=== PATIENT | female | born 1950 | race Caucasian/White ===

== ENCOUNTER 2017-11-15 07:34 | Emergency (ER) | payer OTHER ==
[2017-11-15] MEDS: ONDANSETRON 4 MG INJ IV (07:55)
[2017-11-15] MEDS: morphine 4 MG/ML VIAL IV (07:55)
[2017-11-15 08:13] LABS: AADO2 Arterial 509.3 mmHg (7.0-24.0); Allen Test ACCEPTAB; Arterial Base Excess -9.1 mmol/L (-3.0-3); Arterial Blood Gas Oxygen Sat 98.6 mmHG (95.0-98.0); Arterial COHb 0.5 % (0.0-3.0); Arterial Fraction of Oxyhgb 97.8 % (93.0-99.0); Arterial HCO3 18.3 mmol/L (22.0-26.0); Arterial MetHb 0.3 % (0.0-1.5); Arterial Total Hemglobin 12.1 g/dl (12.0-18.0); Arterial pCO2 45.6 mmhg (35-45); Blood Gas IEPAP 15/5; Blood Gas PS 10; MODE MASK - BIPAP; Site Right Radial
[2017-11-15 08:14] LABS: ADD MAN DIFF? NO
[2017-11-15 08:21] LABS: BASOPHIL # 0.1 10^3/ul (0.0-0.1); EOSINOPHILS # 0.5 10^3/ul (0.0-0.5); EOSINOPHILS % 3.6 % (0.0-7.0); HEMATOCRIT 35.5 % (37.0-47.0); HEMOGLOBIN 11.6 g/dl (12.0-16.0); LYMPHOCYTES # 2.3 10^3/ul (0.8-2.9); LYMPHOCYTES % 17.3 % (15.0-51.0); MEAN CORPUSCULAR HEMOGLOBIN 29.7 pg (29.0-33.0); MEAN CORPUSCULAR HGB CONC 32.7 g/dl (32.0-37.0); MEAN PLATELET VOLUME 10.8 fl (7.4-10.4); MONOCYTE # 0.6 10^3/ul (0.3-0.9); MONOCYTES % 4.5 % (0.0-11.0); NEUTROPHIL # 9.8 10^3/ul (1.6-7.5); NEUTROPHILS % 72.9 % (39.0-77.0); PLATELET COUNT 243 10^3/UL (140-415); RED CELL DISTRIBUTION WIDTH 15.1 % (11.5-14.5)
[2017-11-15 08:21] LABS: WHITE BLOOD COUNT 13.5 10^3/ul (4.8-10.8)
[2017-11-15 08:39] LABS: ALANINE AMINOTRANSFERASE 60 IU/L (13-69); ALBUMIN 4.5 g/dl (3.3-4.9); ALBUMIN/GLOBULIN RATIO 1.55; ALKALINE PHOSPHATASE 128 IU/L (42-121); ANION GAP 25 (8-16); ASPARTATE AMINO TRANSFERASE 50 IU/L (15-46); BILIRUBIN,INDIRECT 0.3 mg/dl (0-1.1); BILIRUBIN,TOTAL 0.3 mg/dl (0.2-1.3); BLOOD UREA NITROGEN 68 mg/dl (7-20); CALCIUM 9.3 mg/dl (8.4-10.2); CARBON DIOXIDE 22 mmol/L (21-31); CHLORIDE 98 mmol/L (97-110); CREATININE 8.81 mg/dl (0.44-1.00); INR 0.87; LIPASE 185 U/L (23-300); POTASSIUM 5.2 mmol/L (3.5-5.1); PROTIME 11.9 Sec (11.9-14.9); PT RATIO 0.9; SODIUM 140 mmol/L (135-144); TOTAL PROTEIN 7.4 g/dl (6.1-8.1)
[2017-11-15 08:40] LABS: PARTIAL THROMBOPLASTIN TIME 29.2 Sec (25.0-35.0)
[2017-11-15 08:50] LABS: TROPONIN-I 0.103 ng/ml (0.00-0.12)
[2017-11-15 09:03] LABS: GLUCOSE 507 mg/dl (70-220)
[2017-11-15] MEDS: ALBUTEROL 0.083% (NEB) 2.5 MG/3 ML AMP HHN (10:31)
[2017-11-15] MEDS: NITROGLYCERIN 2% 1 GM OINT PKT TD (10:34)
[2017-11-15] MEDS: predniSONE 20 MG TAB PO (12:04)
[2017-11-15] MEDS: ASPIRIN 81 MG TAB PO (12:04)
[2017-11-15] MEDS: FUROSEMIDE 40 MG INJ IV (12:04)
[2017-11-15] MEDS: INSULIN LISPRO 100 UNIT/ML VIAL SC (12:26)
[2017-11-15] MEDS: NITROGLYCERIN (SL) 0.4 MG TAB SL (12:28)
== END 2017-11-15 11:55 | disposition short-term general hospital (02) ==
LOC: E/R 07:34
DX: J81.0 Acute pulmonary edema (principal); J96.01 Acute respiratory failure with hypoxia; R07.9 Chest pain, unspecified; E11.22 Type 2 diabetes mellitus with diabetic chronic kidney disease; N18.9 Chronic kidney disease, unspecified; I12.9 Hypertensive chronic kidney disease with stage 1 through stage 4 chronic kidney disease, or unspecified chronic kidney disease; J45.909 Unspecified asthma, uncomplicated; I25.10 Atherosclerotic heart disease of native coronary artery without angina pectoris; Z79.82 Long term (current) use of aspirin; Z79.4 Long term (current) use of insulin
CPT/HCPCS: 36415; 36600; 71045; 80053; 82803; 82962; 83690; 84484; 85025; 85610; 85730; 93005; 94660; 94664; 96374; 96375; 99291-25

== ENCOUNTER 2018-02-06 23:57 | Inpatient (IN) | payer OTHER ==
[2018-02-07] MEDS: hydrALAzine 20 MG INJ IV (00:51)
[2018-02-07] MEDS: FUROSEMIDE 40 MG INJ IV (00:52)
[2018-02-07 00:53] LABS: ADD MAN DIFF? NO
[2018-02-07 00:57] LABS: ALANINE AMINOTRANSFERASE 92 IU/L (13-69); ALBUMIN 4.7 g/dl (3.3-4.9); ALKALINE PHOSPHATASE 132 IU/L (42-121); ANION GAP 21 (8-16); ASPARTATE AMINO TRANSFERASE 125 IU/L (15-46); BILIRUBIN,INDIRECT 0.3 mg/dl (0-1.1); BILIRUBIN,TOTAL 0.3 mg/dl (0.2-1.3); BLOOD UREA NITROGEN 43 mg/dl (7-20); CALCIUM 9.6 mg/dl (8.4-10.2); CARBON DIOXIDE 28 mmol/L (21-31); CHLORIDE 97 mmol/L (97-110); CREATININE 7.92 mg/dl (0.44-1.00); GLUCOSE 266 mg/dl (70-220); LIPASE 132 U/L (23-300); SODIUM 140 mmol/L (135-144); TOTAL PROTEIN 7.3 g/dl (6.1-8.1)
[2018-02-07 01:01] LABS: INR 0.89; PROTIME 12.1 Sec (11.9-14.9); PT RATIO 0.9
[2018-02-07 01:02] LABS: PARTIAL THROMBOPLASTIN TIME 27.1 Sec (25.0-35.0)
[2018-02-07 01:09] LABS: TROPONIN-I 0.086 ng/ml (0.000-0.120)
[2018-02-07] MEDS: DEXTROSE 50% 50 ML SYRINGE IV (01:14)
[2018-02-07 01:26] LABS: B-TYPE NATRIURETIC PEPTIDE 46800 PG/ML (0-125)
[2018-02-07] MEDS ORDERED: DEXTROSE 50% 50 ML SYRINGE IV ×3 (01:30→05:00)
[2018-02-07] MEDS: ALBUTEROL 0.5% (NEB) 2.5 MG/0.5 ML AMP INH (01:40)
[2018-02-07] MEDS: ALBUTEROL 0.083% (NEB) 2.5 MG/3 ML AMP HHN (01:58)
[2018-02-07] MEDS: INSULIN REGULAR, HUMAN 100 UNIT/1 ML 3ML VIAL IVP (01:59)
[2018-02-07 02:02] LABS: WHITE BLOOD COUNT 12.9 10^3/ul (4.8-10.8)
[2018-02-07 02:02] LABS: BASOPHIL # 0.1 10^3/ul (0.0-0.1); BASOPHILS % 0.8 % (0.0-2.0); EOSINOPHILS # 0.4 10^3/ul (0.0-0.5); EOSINOPHILS % 3.1 % (0.0-7.0); HEMATOCRIT 33.5 % (37.0-47.0); HEMOGLOBIN 10.3 g/dl (12.0-16.0); LYMPHOCYTES # 1.3 10^3/ul (0.8-2.9); LYMPHOCYTES % 10.2 % (15.0-51.0); MEAN CORPUSCULAR HEMOGLOBIN 29.7 pg (29.0-33.0); MEAN CORPUSCULAR HGB CONC 30.7 g/dl (32.0-37.0); MEAN CORPUSCULAR VOLUME 96.5 fl (82.0-101.0); MEAN PLATELET VOLUME 10.2 fl (7.4-10.4); MONOCYTE # 0.8 10^3/ul (0.3-0.9); MONOCYTES % 6.1 % (0.0-11.0); NEUTROPHIL # 10.2 10^3/ul (1.6-7.5); NEUTROPHILS % 79.2 % (39.0-77.0); NUCLEATED RED BLOOD CELLS% 0.2 /100WBC (0.0-0.0); PLATELET COUNT 186 10^3/UL (140-415); RED BLOOD COUNT 3.47 10^6/ul (4.20-5.40); RED CELL DISTRIBUTION WIDTH 15.5 % (11.5-14.5)
[2018-02-07] MEDS: morphine 4 MG/ML VIAL IV (02:12)
[2018-02-07] MEDS ORDERED: NITROGLYCERIN (SL) 0.4 MG TAB SL (04:30)
[2018-02-07] MEDS ORDERED: ACETAMINOPHEN 325 MG TAB PO (04:30)
[2018-02-07] MEDS ORDERED: BISACODYL (EC) 5 MG TAB PO (04:30)
[2018-02-07] MEDS ORDERED: NACL 0.9% 3 ML SYG IV (04:30)
[2018-02-07] MEDS ORDERED: GLUCOSE GEL 15 GRAM TUBE BUCCAL (05:00)
[2018-02-07] MEDS ORDERED: GLUCOSE GEL 15 GRAM TUBE PO ×2 (05:00)
[2018-02-07] MEDS ORDERED: GLUCAGON 1 MG INJ IM (05:00)
[2018-02-07] MEDS: LIDOCAINE/MYLANTA 40 ML BTL PO (05:05)
[2018-02-07] MEDS: morphine 2 MG INJ IV (05:42)
[2018-02-07] MEDS: INSULIN ASPART [NOVOLOG] 3 ML PEN SC ×7 (07:55→20:22)
[2018-02-07] MEDS: SEVELAMER CARBONATE 0.8 GM PKT PO ×3 (07:55→17:39)
[2018-02-07 08:04] LABS: ADD MAN DIFF? NO
[2018-02-07 08:07] LABS: BASOPHIL # 0.1 10^3/ul (0.0-0.1); BASOPHILS % 0.6 % (0.0-2.0); EOSINOPHILS # 0.2 10^3/ul (0.0-0.5); HEMATOCRIT 31.8 % (37.0-47.0); HEMOGLOBIN 9.8 g/dl (12.0-16.0); LYMPHOCYTES # 2.1 10^3/ul (0.8-2.9); LYMPHOCYTES % 20.9 % (15.0-51.0); MEAN CORPUSCULAR HGB CONC 30.8 g/dl (32.0-37.0); MEAN CORPUSCULAR VOLUME 97.2 fl (82.0-101.0); MEAN PLATELET VOLUME 10.3 fl (7.4-10.4); MONOCYTE # 0.8 10^3/ul (0.3-0.9); MONOCYTES % 7.8 % (0.0-11.0); NEUTROPHILS % 68.1 % (39.0-77.0); PLATELET COUNT 194 10^3/UL (140-415); RED BLOOD COUNT 3.27 10^6/ul (4.20-5.40); RED CELL DISTRIBUTION WIDTH 15.7 % (11.5-14.5)
[2018-02-07 08:07] LABS: WHITE BLOOD COUNT 10.2 10^3/ul (4.8-10.8)
[2018-02-07 08:24] LABS: HEMOGLOBIN A1C 8.6 % (0-5.9)
[2018-02-07 08:27] LABS: CREATINE KINASE 38 IU/L (23-200)
[2018-02-07 08:34] LABS: ALANINE AMINOTRANSFERASE 71 IU/L (13-69); ALBUMIN 3.6 g/dl (3.3-4.9); ALKALINE PHOSPHATASE 101 IU/L (42-121); ANION GAP 19 (8-16); ASPARTATE AMINO TRANSFERASE 50 IU/L (15-46); BILIRUBIN,INDIRECT 0.2 mg/dl (0-1.1); BILIRUBIN,TOTAL 0.2 mg/dl (0.2-1.3); BLOOD UREA NITROGEN 46 mg/dl (7-20); CALCIUM 9.3 mg/dl (8.4-10.2); CARBON DIOXIDE 27 mmol/L (21-31); CHLORIDE 101 mmol/L (97-110); CHOL/HDL RATIO 1.3 RATIO; CHOLESTEROL 75 mg/dl (100-200); CREATININE 8.27 mg/dl (0.44-1.00); GLUCOSE 148 mg/dl (70-220); HDL CHOLESTEROL 56 mg/dl (35-98); LDL CHOLESTEROL,CALCULATED 6 mg/dl; POTASSIUM 5.6 mmol/L (3.5-5.1); SODIUM 141 mmol/L (135-144); TOTAL PROTEIN 5.6 g/dl (6.1-8.1); TRIGLYCERIDES 63 mg/dl (0-149)
[2018-02-07 08:40] LABS: CK INDEX 2.3; CK-MB 0.87 ng/ml (0.0-2.4); TROPONIN-I 0.108 ng/ml (0.000-0.120)
[2018-02-07] MEDS ORDERED: ALBUMIN HUMAN 25% 100 ML IV (09:00)
[2018-02-07] MEDS ORDERED: NON-FORMULARY/PATIENT OWN MED (Hydralazine Hcl* 50 MG) PO (09:30)
[2018-02-07] MEDS: PANTOPRAZOLE SODIUM 20 MG TABEC PO (10:33)
[2018-02-07] MEDS: CLOPIDOGREL 75 MG TAB PO (10:34)
[2018-02-07] MEDS: AMLODIPINE 5 MG TAB PO (12:54)
[2018-02-07] MEDS: ATENOLOL 25 MG TAB PO ×2 (12:55→20:10)
[2018-02-07 13:02] LABS: CREATINE KINASE 42 IU/L (23-200)
[2018-02-07 13:14] LABS: CK INDEX 2.3; CK-MB 0.95 ng/ml (0.0-2.4)
[2018-02-07 13:18] LABS: TROPONIN-I 0.136 ng/ml (0.000-0.120)
[2018-02-07 13:33] LABS: HEPATITIS B SURFACE ANTIGEN NEGATIVE (NEGATIVE)
[2018-02-07] MEDS ORDERED: morphine LIQ (10 MG/5 ML) CUP PO (18:00)
[2018-02-07] MEDS: ATORVASTATIN 10 MG TAB PO (20:09)
[2018-02-07] MEDS: INSULIN GLARGINE [LANtus] 3 ML PEN SC (21:22)
[2018-02-07] MEDS: DOCUSATE SODIUM 100 MG CAP PO (22:00)
[2018-02-08] MEDS: GABAPENTIN 300 MG CAP PO
[2018-02-08] MEDS: ACCU-CHEK XX (02:00)
[2018-02-08] MEDS: PANTOPRAZOLE SODIUM 20 MG TABEC PO (05:44)
[2018-02-08] MEDS: INSULIN ASPART [NOVOLOG] 3 ML PEN SC ×7 (07:57→21:00)
[2018-02-08] MEDS: SEVELAMER CARBONATE 0.8 GM PKT PO ×3 (08:15→18:21)
[2018-02-08] MEDS: CLOPIDOGREL 75 MG TAB PO (08:15)
[2018-02-08] MEDS: AMLODIPINE 5 MG TAB PO ×2 (08:16→12:21)
[2018-02-08] MEDS: ATENOLOL 25 MG TAB PO ×2 (08:17→21:24)
[2018-02-08 10:27] LABS: ADD MAN DIFF? NO
[2018-02-08 10:30] LABS: WHITE BLOOD COUNT 9.2 10^3/ul (4.8-10.8)
[2018-02-08 10:30] LABS: BASOPHIL # 0.1 10^3/ul (0.0-0.1); BASOPHILS % 0.9 % (0.0-2.0); EOSINOPHILS # 0.4 10^3/ul (0.0-0.5); EOSINOPHILS % 4.7 % (0.0-7.0); HEMATOCRIT 37.8 % (37.0-47.0); HEMOGLOBIN 11.2 g/dl (12.0-16.0); LYMPHOCYTES # 1.8 10^3/ul (0.8-2.9); LYMPHOCYTES % 19.4 % (15.0-51.0); MEAN CORPUSCULAR HEMOGLOBIN 29.4 pg (29.0-33.0); MEAN CORPUSCULAR HGB CONC 29.6 g/dl (32.0-37.0); MEAN CORPUSCULAR VOLUME 99.2 fl (82.0-101.0); MEAN PLATELET VOLUME 10.6 fl (7.4-10.4); MONOCYTE # 0.6 10^3/ul (0.3-0.9); NEUTROPHIL # 6.2 10^3/ul (1.6-7.5); NEUTROPHILS % 67.6 % (39.0-77.0); PLATELET COUNT 188 10^3/UL (140-415); RED BLOOD COUNT 3.81 10^6/ul (4.20-5.40); RED CELL DISTRIBUTION WIDTH 16.2 % (11.5-14.5)
[2018-02-08 10:48] LABS: CREATINE KINASE 39 IU/L (23-200)
[2018-02-08 10:49] LABS: ALANINE AMINOTRANSFERASE 57 IU/L (13-69); ALBUMIN/GLOBULIN RATIO 1.37; ALKALINE PHOSPHATASE 111 IU/L (42-121); ANION GAP 18 (8-16); ASPARTATE AMINO TRANSFERASE 39 IU/L (15-46); BILIRUBIN,INDIRECT 0.2 mg/dl (0-1.1); BILIRUBIN,TOTAL 0.2 mg/dl (0.2-1.3); BLOOD UREA NITROGEN 36 mg/dl (7-20); CALCIUM 9.3 mg/dl (8.4-10.2); CARBON DIOXIDE 24 mmol/L (21-31); CHLORIDE 104 mmol/L (97-110); CREATININE 6.28 mg/dl (0.44-1.00); GLUCOSE 54 mg/dl (70-220); MAGNESIUM 2.7 mg/dl (1.7-2.5); POTASSIUM 5.8 mmol/L (3.5-5.1); SODIUM 140 mmol/L (135-144); TOTAL PROTEIN 6.9 g/dl (6.1-8.1)
[2018-02-08 11:01] LABS: CK INDEX 2.7; CK-MB 1.04 ng/ml (0.0-2.4); TROPONIN-I 0.201 ng/ml (0.000-0.120)
[2018-02-08] MEDS: NA POLYST SULFON 15 GM/60 ML BTL PO (11:25)
[2018-02-08] MEDS ORDERED: LACTULOSE 30ML CUP PO (12:00)
[2018-02-08] MEDS: hydrALAzine 20 MG INJ IV (12:22)
[2018-02-08] MEDS: ATORVASTATIN 10 MG TAB PO (21:15)
[2018-02-08] MEDS: INSULIN GLARGINE [LANtus] 3 ML PEN SC (21:20)
[2018-02-09] MEDS: ACCU-CHEK XX (02:00)
[2018-02-09] MEDS: PANTOPRAZOLE SODIUM 20 MG TABEC PO ×2 (05:41→18:12)
[2018-02-09] MEDS: INSULIN ASPART [NOVOLOG] 3 ML PEN SC ×6 (07:21→18:07)
[2018-02-09] MEDS: CLOPIDOGREL 75 MG TAB PO (08:17)
[2018-02-09] MEDS: AMLODIPINE 10 MG TAB PO (08:17)
[2018-02-09] MEDS: SEVELAMER CARBONATE 0.8 GM PKT PO ×3 (08:17→18:10)
[2018-02-09] MEDS: ATENOLOL 25 MG TAB PO (08:18)
[2018-02-09 09:37] LABS: ADD MAN DIFF? NO
[2018-02-09 09:41] LABS: WHITE BLOOD COUNT 7.7 10^3/ul (4.8-10.8)
[2018-02-09 09:41] LABS: BASOPHIL # 0.1 10^3/ul (0.0-0.1); EOSINOPHILS # 0.5 10^3/ul (0.0-0.5); HEMATOCRIT 34.2 % (37.0-47.0); HEMOGLOBIN 10.4 g/dl (12.0-16.0); LYMPHOCYTES # 1.7 10^3/ul (0.8-2.9); LYMPHOCYTES % 21.6 % (15.0-51.0); MEAN CORPUSCULAR HEMOGLOBIN 29.3 pg (29.0-33.0); MEAN CORPUSCULAR HGB CONC 30.4 g/dl (32.0-37.0); MEAN CORPUSCULAR VOLUME 96.3 fl (82.0-101.0); MEAN PLATELET VOLUME 10.5 fl (7.4-10.4); MONOCYTE # 0.7 10^3/ul (0.3-0.9); MONOCYTES % 9.2 % (0.0-11.0); NEUTROPHIL # 4.7 10^3/ul (1.6-7.5); NEUTROPHILS % 61.9 % (39.0-77.0); PLATELET COUNT 204 10^3/UL (140-415); RED BLOOD COUNT 3.55 10^6/ul (4.20-5.40); RED CELL DISTRIBUTION WIDTH 15.9 % (11.5-14.5)
[2018-02-09] MEDS: METOCLOPRAMIDE 10 MG INJ IV (10:07)
[2018-02-09 10:50] LABS: ANION GAP 22 (8-16); BLOOD UREA NITROGEN 50 mg/dl (7-20); CARBON DIOXIDE 22 mmol/L (21-31); CHLORIDE 98 mmol/L (97-110); CREATININE 7.84 mg/dl (0.44-1.00); GLUCOSE 167 mg/dl (70-220); POTASSIUM 5.5 mmol/L (3.5-5.1); SODIUM 136 mmol/L (135-144)
== END 2018-02-09 18:43 | disposition short-term general hospital (02) | DRG 291 ==
LOC: E/R 23:57 → TEL 02-07 03:34
PROC: 5A1D70Z Performance of Urinary Filtration, Intermittent, Less than 6 Hours Per Day (ICD-10-PCS; 2018-02-07)
PROC: 5A1D70Z Performance of Urinary Filtration, Intermittent, Less than 6 Hours Per Day (ICD-10-PCS; principal; 2018-02-08)
DX: I13.2 Hypertensive heart and chronic kidney disease with heart failure and with stage 5 chronic kidney disease, or end stage renal disease (principal); I50.31 Acute diastolic (congestive) heart failure; N18.6 End stage renal disease; J96.00 Acute respiratory failure, unspecified whether with hypoxia or hypercapnia; I16.1 Hypertensive emergency; E87.5 Hyperkalemia; E11.22 Type 2 diabetes mellitus with diabetic chronic kidney disease; K21.9 Gastro-esophageal reflux disease without esophagitis; E78.5 Hyperlipidemia, unspecified; I25.10 Atherosclerotic heart disease of native coronary artery without angina pectoris; I25.2 Old myocardial infarction; Z99.2 Dependence on renal dialysis; Z79.4 Long term (current) use of insulin; Z86.73 Personal history of transient ischemic attack (TIA), and cerebral infarction without residual deficits
CPT/HCPCS: 36415; 71045; 80048; 80053; 80061; 82550; 82553; 82962; 83036; 83690; 83735; 83880; 84443; 84484; 85025; 85610; 85730; 87340; 90935; 93005; 93306; 94660; 94664; 96374; 96375; 99291-25

== ENCOUNTER 2018-05-13 06:53 | Emergency (ER) | payer OTHER ==
[2018-05-13 07:20] LABS: ADD MAN DIFF? NO
[2018-05-13] MEDS: ALBUTEROL 0.5% (NEB) 2.5 MG/0.5 ML AMP INH (07:21)
[2018-05-13] MEDS: IPRATROPIUM (NEB) 0.5 MG/2.5 ML AMP INH (07:21)
[2018-05-13 07:22] LABS: WHITE BLOOD COUNT 10.9 10^3/ul (4.8-10.8)
[2018-05-13 07:22] LABS: BASOPHIL # 0.1 10^3/ul (0.0-0.1); BASOPHILS % 1.1 % (0.0-2.0); EOSINOPHILS # 0.8 10^3/ul (0.0-0.5); EOSINOPHILS % 7.5 % (0.0-7.0); HEMATOCRIT 38.9 % (37.0-47.0); HEMOGLOBIN 11.8 g/dl (12.0-16.0); LYMPHOCYTES # 2.8 10^3/ul (0.8-2.9); LYMPHOCYTES % 25.3 % (15.0-51.0); MEAN CORPUSCULAR HEMOGLOBIN 29.5 pg (29.0-33.0); MEAN CORPUSCULAR HGB CONC 30.3 g/dl (32.0-37.0); MEAN CORPUSCULAR VOLUME 97.3 fl (82.0-101.0); MEAN PLATELET VOLUME 10.6 fl (7.4-10.4); MONOCYTE # 0.5 10^3/ul (0.3-0.9); NEUTROPHIL # 6.6 10^3/ul (1.6-7.5); NEUTROPHILS % 60.4 % (39.0-77.0); PLATELET COUNT 242 10^3/UL (140-415); RED CELL DISTRIBUTION WIDTH 14.7 % (11.5-14.5)
[2018-05-13] MEDS: FUROSEMIDE 40 MG INJ IV (07:22)
[2018-05-13 07:26] LABS: INR 0.83; PROTIME 11.5 Sec (11.9-14.9); PT RATIO 0.9
[2018-05-13 07:27] LABS: PARTIAL THROMBOPLASTIN TIME 28.3 Sec (23.0-35.0)
[2018-05-13 07:31] LABS: ALANINE AMINOTRANSFERASE 32 IU/L (13-69); ALBUMIN/GLOBULIN RATIO 1.21; ALKALINE PHOSPHATASE 108 IU/L (42-121); AMYLASE 80 U/L (11-123); ANION GAP 18 (8-16); ASPARTATE AMINO TRANSFERASE 40 IU/L (15-46); BILIRUBIN,INDIRECT 0.1 mg/dl (0-1.1); BILIRUBIN,TOTAL 0.1 mg/dl (0.2-1.3); BLOOD UREA NITROGEN 53 mg/dl (7-20); CALCIUM 9.9 mg/dl (8.4-10.2); CARBON DIOXIDE 26 mmol/L (21-31); CHLORIDE 100 mmol/L (97-110); CREATININE 8.28 mg/dl (0.44-1.00); GLUCOSE 312 mg/dl (70-220); LIPASE 219 U/L (23-300); SODIUM 139 mmol/L (135-144); TOTAL PROTEIN 7.3 g/dl (6.1-8.1)
[2018-05-13 07:41] LABS: TROPONIN-I 0.055 ng/ml (0.000-0.120)
[2018-05-13 07:53] LABS: LACTIC ACID 1.9 mmol/L (0.5-2.0)
[2018-05-13] MEDS: NITROGLYCERIN 50 MG/D5W (PMX) 250 ML IV (08:17)
[2018-05-13 08:57] LABS: B-TYPE NATRIURETIC PEPTIDE 38200 PG/ML (0-125)
[2018-05-13 09:26] LABS: LACTIC ACID 1.6 mmol/L (0.5-2.0)
== END 2018-05-13 11:15 | disposition short-term general hospital (02) ==
LOC: E/R 06:53
DX: I16.1 Hypertensive emergency (principal); I50.1 Left ventricular failure, unspecified; I12.0 Hypertensive chronic kidney disease with stage 5 chronic kidney disease or end stage renal disease; N18.6 End stage renal disease; E11.22 Type 2 diabetes mellitus with diabetic chronic kidney disease; I25.10 Atherosclerotic heart disease of native coronary artery without angina pectoris; J45.901 Unspecified asthma with (acute) exacerbation; I25.2 Old myocardial infarction; Z99.2 Dependence on renal dialysis; Z98.61 Coronary angioplasty status; Z79.4 Long term (current) use of insulin; Z79.82 Long term (current) use of aspirin; Z79.01 Long term (current) use of anticoagulants
CPT/HCPCS: 36415; 71045; 80053; 82150; 82962; 83605; 83690; 83880; 84484; 85025; 85610; 85730; 87040; 93005; 94644; 94660; 96365; 96366; 96375; 99291-25